=== PATIENT | male | born 1960 | race Native Hawaiian/Other Pacific Islander ===

== ENCOUNTER 2018-05-05 08:41 | Outpatient (CLI) | payer BC ==
[~2018-05-05 08:41] MED LIST: ASPI-93 PO; CLOP75TA2 PO; LIPITOR40 MG PO; METO25TA4 PO; RANO1000T PO
[2018-05-05 08:55] LABS: PLATELET COUNT 331 K/uL (142-355)
[2018-05-05 09:14] LABS: POTASSIUM 4.1 mmol/L (3.6-5.2)
== END 2018-05-05 21:58 | disposition home or self-care (01) ==
LOC: LABW 08:41
PROVIDERS: Internal Medicine Cardiovascular Disease
DX: E78.4 Other hyperlipidemia (principal); Z79.899 Other long term (current) drug therapy; Z51.81 Encounter for therapeutic drug level monitoring
CPT/HCPCS: 36415; 80048; 80061; 80076; 85027

== ENCOUNTER 2019-05-11 09:07 | Outpatient (CLI) | payer OTHER, BC ==
[2019-05-11 10:31] LABS: PLATELET COUNT 198 K/uL (142-355)
== END 2019-05-11 23:19 | disposition home or self-care (01) ==
LOC: LABW 09:07
PROVIDERS: Internal Medicine Gastroenterology
DX: K22.10 Ulcer of esophagus without bleeding (principal); E78.49 Other hyperlipidemia
CPT/HCPCS: 36415; 80061; 85027

== ENCOUNTER 2019-09-23 08:15 | Outpatient (CLI) | payer OTHER, BC ==
[2019-09-23 09:01] LABS: POTASSIUM 4.1 mmol/L (3.6-5.2)
[2019-09-23 09:46] LABS: PLATELET COUNT 229 K/uL (142-355)
== END 2019-09-23 19:26 | disposition home or self-care (01) ==
LOC: LABW 08:15
PROVIDERS: Physician Assistant
DX: R07.1 Chest pain on breathing (principal); E78.49 Other hyperlipidemia; I10 Essential (primary) hypertension; N40.0 Benign prostatic hyperplasia without lower urinary tract symptoms
CPT/HCPCS: 36415; 80053; 80061; 84153; 84443; 85027

== ENCOUNTER 2019-09-25 13:54 | Outpatient (CLI) | payer OTHER, BC | END 2019-09-25 19:44 | disposition home or self-care (01) | LOC: LABW 13:54 | DX: D64.9 Anemia, unspecified (principal); E53.8 Deficiency of other specified B group vitamins | CPT/HCPCS: 36415; 82607; 82728; 82747; 83540; 83550 ==

== ENCOUNTER 2019-10-12 11:13 | Inpatient (IN) | payer OTHER ==
[~2019-10-12] VITALS: Ht 172.7 cm; Wt 83.1 kg
[2019-10-12] VITALS (13 sets, daily range): BP systolic 119–156; BP diastolic 54–72; TEMP 98.1–99.1; Ht 172.7 cm; Wt 83.1 kg
[2019-10-12 13:13] LABS: PLATELET COUNT 201 K/uL (142-355)
[2019-10-12 13:20] LABS: POTASSIUM 3.8 mmol/L (3.6-5.2); SODIUM 132 mmol/L (136-145)
[2019-10-12 13:25] LABS: PARTIAL THROMBOPLASTIN TIME 24.9 SECONDS (24.5-33.6)
[2019-10-12] MEDS ORDERED: ASPIRIN 81 LOW81 MG PO (21:27)
[2019-10-12] MEDS ORDERED: LIPITOR40 MG PO (21:29)
[2019-10-12] MEDS ORDERED: METOPROLOL25 M1 PO (21:31)
[2019-10-13] VITALS: BP 134/68; TEMP 100.8
[2019-10-13 04:00] VITALS: BP 136/68; TEMP 98.7
[2019-10-13 06:56] LABS: PLATELET COUNT 173 K/uL (142-355)
[2019-10-13 07:06] LABS: POTASSIUM 3.7 mmol/L (3.6-5.2)
[2019-10-13 08:00] VITALS: BP 150/76; TEMP 97.8
[2019-10-13 12:00] VITALS: BP 130/61; TEMP 98.1
[2019-10-13 16:00] VITALS: BP 137/70; TEMP 99.1
[2019-10-13 20:00] VITALS: BP 134/62; TEMP 99.3
[2019-10-14] VITALS: BP 131/69; TEMP 98.3
[2019-10-14 04:00] VITALS: BP 128/65; TEMP 97.7
[2019-10-14 04:39] LABS: PLATELET COUNT 191 K/uL (142-355)
[2019-10-14 04:57] LABS: POTASSIUM 3.9 mmol/L (3.6-5.2)
[2019-10-14 08:00] VITALS: BP 128/60; TEMP 98.6
== END 2019-10-14 13:43 | disposition home or self-care (01) | DRG 809 ==
LOC: ED 11:13 → MED/SURG 17:09
PROVIDERS: Internal Medicine; ADMIT Student in an Organized Health Care Education/Training Program
DX: D70.8 Other neutropenia (principal); C90.00 Multiple myeloma not having achieved remission; I25.10 Atherosclerotic heart disease of native coronary artery without angina pectoris; E78.49 Other hyperlipidemia; I10 Essential (primary) hypertension; R50.81 Fever presenting with conditions classified elsewhere; M89.8X8 Other specified disorders of bone, other site; K27.9 Peptic ulcer, site unspecified, unspecified as acute or chronic, without hemorrhage or perforation; D64.89 Other specified anemias; M89.9 Disorder of bone, unspecified
CPT/HCPCS: 80053; 80074; 81000; 83605; 83735; 84443; 84484; 85007; 85027; 85610; 85730; 86850; 86900; 86901; 87040; 87502; 93005; 94760; 96360; 96361; 96365; 96366; 96375; 99284; J0692; J2270; J2405; J3370; J3475; J3490

== ENCOUNTER 2020-08-30 08:02 | Outpatient (CLI) | payer OTHER ==
[~2020-08-30 08:02] MED LIST changes: +ASPIRIN 81 LOW81 MG PO; +METOPROLOL25 M1 PO
[2020-08-30 08:52] LABS: PLATELET COUNT 222 K/uL (142-355)
[2020-08-30 09:22] LABS: POTASSIUM 4.3 mmol/L (3.6-5.2)
== END 2020-08-30 19:09 | disposition home or self-care (01) ==
LOC: LABW 08:02
PROVIDERS: ATTEND Internal Medicine Cardiovascular Disease
DX: Z79.899 Other long term (current) drug therapy (principal)
CPT/HCPCS: 36415; 80053; 80061; 85027

== ENCOUNTER 2021-01-19 14:06 | Emergency (ER) | payer OTHER ==
[~2021-01-19] VITALS: Ht 172.7 cm; Wt 83.0 kg
[2021-01-19 14:15] VITALS: TEMP 97
[2021-01-19 14:46] LABS: PLATELET COUNT 195 K/uL (142-355)
[2021-01-19 15:04] LABS: PARTIAL THROMBOPLASTIN TIME 22.9 SECONDS (24.5-33.6)
[2021-01-19 16:15] VITALS: BP 120/57
== END 2021-01-19 16:15 | disposition home or self-care (01) ==
LOC: ED 14:06
PROVIDERS: Hospitalist
PROC: 0HQ6XZZ Repair Back Skin, External Approach (ICD-10-PCS; principal; 2021-01-19)
DX: T81.31XA Disruption of external operation (surgical) wound, not elsewhere classified, initial encounter (principal); Z79.82 Long term (current) use of aspirin; Z79.01 Long term (current) use of anticoagulants; Z98.890 Other specified postprocedural states
CPT/HCPCS: 80053; 85027; 85610; 85730; 87040; 96365; 96375; 99284; J2001; J2270; J2405; J3370; J7040

== ENCOUNTER 2022-09-06 07:56 | Outpatient (CLI) | payer OTHER ==
[~2022-09-06] VITALS: Ht 172.7 cm; Wt 85.7 kg
== END 2022-09-06 18:58 | disposition home or self-care (01) ==
LOC: NM 07:56
PROVIDERS: ATTEND Internal Medicine Cardiovascular Disease
DX: R07.89 Other chest pain (principal)
CPT/HCPCS: A9500; J2785

== ENCOUNTER 2023-01-29 11:47 | Outpatient (CLI) | payer OTHER ==
[2023-01-29 12:02] LABS: PLATELET COUNT 155 K/uL (142-355)
[2023-01-29 12:51] LABS: POTASSIUM 3.9 mmol/L (3.6-5.2)
== END 2023-01-29 18:59 | disposition home or self-care (01) ==
LOC: LABW 11:47
PROVIDERS: ATTEND Physical Medicine & Rehabilitation Pain Medicine
DX: Z01.818 Encounter for other preprocedural examination (principal); M51.36 Other intervertebral disc degeneration, lumbar region; Z79.02 Long term (current) use of antithrombotics/antiplatelets; Z79.1 Long term (current) use of non-steroidal anti-inflammatories (NSAID); Z79.01 Long term (current) use of anticoagulants
CPT/HCPCS: 36415; 80048; 85027; 85610; 87070

== ENCOUNTER 2023-07-24 12:04 | Outpatient (CLI) | payer OTHER ==
[2023-07-24 12:22] LABS: POTASSIUM 3.5 mmol/L (3.6-5.2)
[2023-07-24 12:52] LABS: PLATELET COUNT 167 K/uL (142-355)
== END 2023-07-24 19:59 | disposition home or self-care (01) ==
LOC: LABW 12:04
PROVIDERS: ATTEND Physical Medicine & Rehabilitation Pain Medicine
DX: Z01.818 Encounter for other preprocedural examination (principal); R23.3 Spontaneous ecchymoses
CPT/HCPCS: 36415; 80048; 85027; 85610